=== PATIENT | female | born 1955 | race Two or more races ===

== ENCOUNTER 2024-07-13 08:11 | Emergency (ER) | payer MEDICARE, OTHER ==
[~2024-07-13] VITALS: Ht 157.5 cm; Wt 65.0 kg
[2024-07-13 09:14] VITALS: BP 148/76; PULSE 74; RESP 20; TEMP 99.1; O2SAT 99
[2024-07-13] MEDS: ACETAMINOPHEN 500 MG TAB or CAP PO ONE (09:36)
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
[2024-07-13] MEDS ORDERED: TRAM-626 PO (10:57)
== END 2024-07-13 10:57 | disposition home or self-care (01) ==
LOC: EDBD 08:11 → ER 08:11
DX: S22.41XA Multiple fractures of ribs, right side, initial encounter for closed fracture (principal); S52.592A Other fractures of lower end of left radius, initial encounter for closed fracture; I10 Essential (primary) hypertension; V43.62XA Car passenger injured in collision with other type car in traffic accident, initial encounter; Y93.89 Activity, other specified; Y92.89 Other specified places as the place of occurrence of the external cause; Y99.8 Other external cause status
CPT/HCPCS: 29125; 71101; 73110